=== PATIENT | female | born 1955 | race Caucasian/White ===

== ENCOUNTER → 2016-07-09 08:46 | Outpatient (CLI) | payer OTHER ==
[2015-04-03 12:02] VITALS: BMI 27.4
[~2016-07-09 08:46] MED LIST: ATIVAN0.5 MG PO; ENULOSE10 G/15 ML PO; LIBRAX CAPSULE1 CAP PO; MIRALAX17 GM PO; NICODERM C1 PATCH .1 TRANSDERM; PRILOSEC20 MG PO; PROTONIX40 MG PO; PROZAC20 MG PO; ZOFRAN ODT4 MG/UDTAB PO
== END | disposition home or self-care (01) ==
LOC: D.US 08:46
DX: K75.4 Autoimmune hepatitis (principal)